=== PATIENT | female | born 1970 | race Caucasian/White ===

== ENCOUNTER 2019-11-15 17:07 | Emergency (ER) | payer OTHER ==
[~2019-11-15] VITALS: Ht 170.2 cm; Wt 154.2 kg
[~2019-11-15 17:07] MED LIST: AMOXICILLIN 50500 MG PO; CALCIUM 600 +1 EAC1 PO; DIFLUCAN150 MG PO; FLAGYL500 MG PO; IBUPROFEN 800800 MG PO; LISINOPRIL10 MG PO; TESSALON PERLE100 MG PO; TRAMADOL 50 MG50 MG PO
[2019-11-15] MEDS ORDERED: KEFLEX500 M1 PO (19:14)
[2019-11-15 19:34] VITALS: BP 191/109
== END 2019-11-15 19:35 | disposition home or self-care (01) ==
LOC: M.ERS 17:07
DX: L72.3 Sebaceous cyst (principal); L08.9 Local infection of the skin and subcutaneous tissue, unspecified; I10 Essential (primary) hypertension; Z90.49 Acquired absence of other specified parts of digestive tract; Z88.2 Allergy status to sulfonamides

== ENCOUNTER 2020-02-15 07:31 | Emergency (ER) | payer OTHER ==
[~2020-02-15] VITALS: Ht 170.2 cm; Wt 136.1 kg
[~2020-02-15 07:31] MED LIST changes: +KEFLEX500 M1 PO
[2020-02-15 08:06] LABS: ABSOLUTE LYMPHOCYTES 1.4 thou/uL (0.8-5.3); ABSOLUTE NEUTROPHILS 3.3 thou/uL (1.6-8.1); HEMOGLOBIN 13.6 gm/dL (12.0-15.0); MONOCYTES 6.5 %; RDW-CV 13.3 % (10.5-14.5)
[2020-02-15 08:08] LABS: ABSOLUTE BASOPHILS 0.1 thou/uL (0.0-0.2); ABSOLUTE EOSINOPHILS 0.3 thou/uL (0.0-0.7); ABSOLUTE MONOCYTES 0.3 thou/uL (0.0-1.2); EOSINOPHILS 5.4 %; HEMATOCRIT 40.8 % (37.0-47.0); LYMPHOCYTES 26.1 %; MCH 30.4 pg (26.0-34.0); MCHC 33.3 g/dL (28.0-37.0); MPV 8.8 fl. (7.2-11.1); NUCLEATED RBCS 0 /100WBC; PLATELET COUNT* 255 thou/uL (150-400); RBC 4.48 mil/uL (4.20-5.00); WBC 5.4 thou/uL (4.0-11.0)
[2020-02-15 08:11] LABS: CALCIUM 7.8 mg/dL (8.5-10.1); POTASSIUM 3.9 mmol/L (3.5-5.1)
[2020-02-15 08:22] LABS: ALBUMIN 3.8 g/dL (3.4-5.0); MAGNESIUM 1.9 mg/dL (1.8-2.4); TOTAL BILIRUBIN 0.4 mg/dL (<0.1-1.0)
--- NOTE | 2020-02-15 09:55 | EKG ---
[place] [address] ELECTROCARDIOGRAM REPORT Name: OZZY MIN Room: [facility]#: [id number] Admission: 02/15/20 Attend Phys: Discharge: Date of : 74 Date of Service: 02/15/2036 Report #: [id number] THIS REPORT FOR: //name// [facility] ED Test Date: 2020-02-15 Test Time: 07:36:02 Pat Name: OZZY MIN Department: Room: Gender: [employer]: YOLANDA : 1970 Requested By: Jason Ravi Order Number: [id number] MD: Prudencio Azul Measurements Intervals [place] Rate: 80 P: 45 IN: 131 QRS: 21 QRSD: 100 T: 55 QT: 374 QTc: 432 Interpretive Statements Sinus rhythm Baseline wander in lead(s) II,III,aVF No previous ECG available for comparison Electronically Signed On 02-15-2020 9:54:56 CDT by Prudencio Azul [email or web address] <ELECTRONICALLY SIGNED> By: Prudencio Azul MD, [facility] 02/15/20 0954 5 5 Prudencio Azul MD, [facility] /EPI
[2020-02-15] MEDS ORDERED: FLEXERIL PO (10:48)
[2020-02-15] MEDS ORDERED: NORCO 5-325 TA1 EAC2 PO (10:48)
[2020-02-15 11:02] VITALS: BP 171/86
== END 2020-02-15 11:02 | disposition home or self-care (01) ==
LOC: M.ERS 07:31
PROVIDERS: Emergency Medicine Emergency Medical Services
DX: R07.89 Other chest pain (principal); I10 Essential (primary) hypertension; Z88.2 Allergy status to sulfonamides; Z90.49 Acquired absence of other specified parts of digestive tract